=== PATIENT | male | born 1945 | race Two or more races ===

== ENCOUNTER 2017-04-24 19:20 | Emergency (ER) | payer MEDICARE, MEDICAID ==
[~2017-04-24] VITALS: Ht 177.8 cm; Wt 73.0 kg
[~2017-04-24 19:20] MED LIST: AMLO10TA4 PO; ASPI-1159 PO; DOXA2TAB PO; DUTA0.5C2 PO; FAMO20TA96 PO; HYDR-3513 PO; PRAV20TA PO; TAMS-11 PO
[2017-04-24] MEDS ORDERED: ACETAMINOPHEN 325MG TABLET PO ONE (21:00)
[2017-04-24] MEDS ORDERED: TETANUS AND DIPHTHERIA TOX/PF 0.5ML SYR (ADULT) IM ONE (21:00)
[2017-04-24 21:20] LABS: HEMATOCRIT. 31.9 % (42.0-52.0); HEMOGLOBIN. 10.4 g/dL (14.0-18.0); MEAN CORPUSCULAR HEMOGLOBIN 29.5 pg (28.0-32.0); MEAN PLATELET VOLUME 9.4 fl (7.4-10.4); PLATELET 413 x1000/uL (130-400); RED CELL DISTRIBUTION WIDTH 21.2 % (11.6-14.6)
[2017-04-24 21:27] LABS: PROTHROMBIN TIME 10.7 sec
[2017-04-24 21:34] LABS: CARBON DIOXIDE 25 mEq/L (21-32); CHLORIDE 112 mEq/L (98-107)
[2017-04-24 22:21] LABS: NUCLEATED RED BLOOD CELLS 1 /100 WBC; PLATELET ESTIMATE SLIGHTLY INCREASED
[2017-04-24] MEDS ORDERED: TETANUS, DIPHTHERIA, PERTUSSIS VAC/PF 0.5ML (>7YR OLD) IM ONE (22:30)
[2017-04-25] MEDS ORDERED: BACITRACIN ZINC OINT UDPKT TOP ONE
[2017-04-25 00:16] VITALS: BP 133/87
== END 2017-04-25 00:18 | disposition home or self-care (01) ==
LOC: ER 21:30
DX: S41.111A Laceration without foreign body of right upper arm, initial encounter (principal); S09.90XA Unspecified injury of head, initial encounter; F17.210 Nicotine dependence, cigarettes, uncomplicated; Z88.0 Allergy status to penicillin; Z79.82 Long term (current) use of aspirin; Z90.49 Acquired absence of other specified parts of digestive tract; Z85.528 Personal history of other malignant neoplasm of kidney; W01.198A Fall on same level from slipping, tripping and stumbling with subsequent striking against other object, initial encounter; Y93.89 Activity, other specified; Y92.018 Other place in single-family (private) house as the place of occurrence of the external cause
CPT/HCPCS: 12001; 36415; 70450; 73080; 73090; 80053; 85025; 85610; 90471; 90714; 90715; 99285